=== PATIENT | female | born 1970 | race American Indian/Alaskan Native ===

== ENCOUNTER 2016-11-22 07:59 | Outpatient (CLI) | payer BC ==
--- NOTE | 2016-11-22 11:00 | Mammography Report ---
BILATERAL DIGITAL SCREENING MAMMOGRAM with CAD: 11/22/16 07:59:00 CLINICAL: Routine screening. COMPARISON:10/23/15 FINDINGS: The breasts are heterogeneously dense, which may obscure small masses. A right asymmetry on the CC view requires additional imaging.No architectural distortion or suspicious calcifications.The left breast is negative. IMPRESSION: Right asymmetry requiring further workup. BI-RADS CATEGORY: 0 -- Additional Imaging Evaluation Required RECOMMENDATION: Recall for right lateralmedial and spot compression CC views and right breast ultrasound if needed. ACR BI-RADS MAMMOGRAPHIC CODES: 0 = Needs additional imaging evaluation; 1 = Negative; 2 = Benign; 3 = Probably benign; 4 = Suspicious; 5 = Malignant; 6 = Known biopsy-proven malignancy COMMENT: 1. Dense breast tissue, i.e., adenosis, fibrocystic changes, etc., may obscure an underlying neoplasm. 2. Approximately 10% of cancers are not detected with mammography. 3. A negative mammography report should not delay biopsy if a clinically suspicious mass is present. COMMENT: Patient follow-up letters are generated via our [email or web address] application.
== END 2016-11-22 08:00 | disposition home or self-care (01) ==
LOC: SPVWC 07:59
PROVIDERS: ATTEND Obstetrics & Gynecology
DX: Z12.31 Encounter for screening mammogram for malignant neoplasm of breast (principal)
CPT/HCPCS: 77067; G0202

== ENCOUNTER 2017-01-04 08:12 | Outpatient (CLI) | payer BC ==
--- NOTE | 2017-01-04 10:48 | Ultrasound Report ---
RIGHT DIGITAL DIAGNOSTIC MAMMOGRAM and RIGHT BREAST ULTRASOUND: 01/04/17 08:12:00 CLINICAL: Recalled for asymmetry. COMPARISON:11/22/16 screening FINDINGS: Lateralmedial and spot compression CC views were performed. Satisfactory effacement of the previously described asymmetry on the spot view. The lateral view is negative. Ultrasound of the right breast (including all four quadrants and the retroareolar area) was performed and demonstrated normal fibroglandular and fatty structures. No mass, cyst or shadowing. IMPRESSION: Negative Mammogram and negative right breast ultrasound. BI-RADS CATEGORY: 1 -- Negative RECOMMENDATION: Routine mammographic screening in one year. ACR BI-RADS MAMMOGRAPHIC CODES: 0 = Needs additional imaging evaluation; 1 = Negative; 2 = Benign; 3 = Probably benign; 4 = Suspicious; 5 = Malignant; 6 = Known biopsy-proven malignancy COMMENT: 1. Dense breast tissue, i.e., adenosis, fibrocystic changes, etc., may obscure an underlying neoplasm. 2. Approximately 10% of cancers are not detected with mammography. 3. A negative mammography report should not delay biopsy if a clinically suspicious mass is present. COMMENT: Patient follow-up letters are generated via our [employer] application.
== END 2017-01-04 08:13 | disposition home or self-care (01) ==
LOC: SPVWC 08:12
PROVIDERS: ATTEND Obstetrics & Gynecology
DX: N64.89 Other specified disorders of breast (principal)
CPT/HCPCS: 76641; G0206

== ENCOUNTER 2018-12-10 09:43 | Outpatient (CLI) | payer BC ==
--- NOTE | 2018-12-10 14:13 | Mammography Report ---
BILATERAL DIGITAL SCREENING MAMMOGRAM with CAD: 12/10/18 09:43:00 CLINICAL: Routine screening. COMPARISON:11/22/16 FINDINGS: The breasts are heterogeneously dense, which may obscure small masses. No mass, architectural distortion or suspicious calcifications. IMPRESSION: No mammographic evidence of malignancy. BI-RADS CATEGORY: 1 - - Negative RECOMMENDATION: Routine mammographic screening in one year. COMMENT: Patient follow-up letters are generated by our [employer] application.
== END 2018-12-10 09:44 | disposition home or self-care (01) ==
LOC: SPVWC 09:43
PROVIDERS: ATTEND Obstetrics & Gynecology
DX: Z12.31 Encounter for screening mammogram for malignant neoplasm of breast (principal)
CPT/HCPCS: 77067

== ENCOUNTER 2021-02-18 15:04 | Outpatient (CLI) | payer BC ==
--- NOTE | 2021-02-18 16:26 | Mammography Report ---
DIGITAL SCREENING MAMMOGRAM WITH TOMOSYNTHESIS WITH CAD, 02/18/2021 CLINICAL INFORMATION / INDICATION: Screening TECHNIQUE: Digital bilateral 2D and 3D mammography with tomosynthesis was obtained in the craniocaud al and mediolateral oblique projections. Computer-Aided Detection (CAD) analysis was used for interp retation of this study. COMPARISON: 12/10/2018 FINDINGS: Breast Density: There are scattered areas of fibroglandular density. No dominant mass, suspicious calcifications, or architectural distortion in either breast. IMPRESSION: No mammographic evidence of malignancy. Follow up recommendation: Routine yearly BI-RADS Category 1: Negative. A "normal" or negative report should not discourage follow up or biopsy of a clinically significant f inding. A written summary of these findings will be mailed to the patient. The patient will be entered into a mammography reporting system which will generate a reminder letter for the patient's next appointmen t at the appropriate interval. The [employer] recommends yearly mammograms starting at age 40 and continuing as l jt as a woman is in good health. Breast MRI is recommended for women with an approximate 20-25% or greater lifetime risk of breast cancer, including women with a strong family history of breast or ova yoselyn cancer or who have been treated for Hodgkin's disease. Signer Name: Vitor Finch MD Signed: 02/18/2021 4:22 PM Workstation Name: [id number]
== END 2021-02-18 15:05 | disposition home or self-care (01) ==
LOC: SPVWC 15:04
PROVIDERS: ATTEND Obstetrics & Gynecology
DX: Z12.31 Encounter for screening mammogram for malignant neoplasm of breast (principal); N64.89 Other specified disorders of breast
CPT/HCPCS: 77063; 77067

== ENCOUNTER 2022-04-26 14:23 | Outpatient (CLI) | payer BC ==
--- NOTE | 2022-04-27 13:36 | Mammography Report ---
DIGITAL SCREENING MAMMOGRAM WITH TOMOSYNTHESIS WITH CAD, 04/26/2022 CLINICAL INFORMATION / INDICATION: Routine Screening Mammography. SCREENING MAMMO WITH JESSIE Z12.31 S CREENING MAMMO WITH JESSIE Z12.31 TECHNIQUE: Digital bilateral 2D and 3D mammography with tomosynthesis was obtained in the craniocauda l and mediolateral oblique projections. Computer-Aided Detection (CAD) analysis was used for interpre tation of this study. COMPARISON: 02/18/2021 FINDINGS: Breast Density: There are scattered areas of fibroglandular density. No dominant mass, suspicious calcifications, or architectural distortion in either breast. Stable 1-view asymmetry within the lateral left breast seen on the CC projection without underlying m ass identified on the 3-D images. No suspicious change since the prior exam. IMPRESSION: No mammographic evidence of malignancy. Follow up recommendation: Routine yearly screening mammogram. BI-RADS Category 2: BENIGN. A "normal" or negative report should not discourage follow up or biopsy of a clinically significant f inding. A written summary of these findings will be mailed to the patient. The patient will be entered into a mammography reporting system which will generate a reminder letter for the patient's next appointmen t at the appropriate interval. The [employer] recommends yearly mammograms starting at age 40 and continuing as l jt as a woman is in good health. Breast MRI is recommended for women with an approximate 20-25% or greater lifetime risk of breast cancer, including women with a strong family history of breast or ova yoselyn cancer or who have been treated for Hodgkin's disease. Signer Name: Aron Marcus MD Signed: 04/27/2022 1:32 PM Workstation Name: [id number]
== END 2022-04-26 14:24 | disposition home or self-care (01) ==
LOC: SPVWC 14:23
PROVIDERS: ATTEND Obstetrics & Gynecology
DX: Z12.31 Encounter for screening mammogram for malignant neoplasm of breast (principal)
CPT/HCPCS: 77063; 77067